=== PATIENT | male | born 1965 | race Caucasian/White ===

== ENCOUNTER 2019-06-25 08:10 | Inpatient (IN) ==
[2019-06-25] MEDS ORDERED: ZOFRAN ODT PO ONE ×2 (09:29→09:36)
[2019-06-25] MEDS ORDERED: ATIVAN PO ONE (09:32)
[2019-06-25] MEDS ORDERED: ZOFRAN ODT ONE (09:34)
[2019-06-25 10:17] LABS: BASO# 0.03 X1000 (0.0-0.2); BASO% 0.3 % (0.0-0.8); EOS# 0.01 X1000 (0.0-0.7); EOS% 0.1 % (0.0-10.0); HEMATOCRIT 44.1 % (42.0-52.0); HEMOGLOBIN 14.7 g/dL (14.0-18.0); IMM GRAN# 0.01 X1000 (0.0-0.04); IMM GRAN% 0.1 % (0.0-0.5); LYMPH# 1.54 X1000 (1.2-3.4); LYMPH% 16.5 % (20.5-51.1); MCH 29.9 PG (27-31); MCHC 33.3 g/dL (33-37); MCV 89.6 FL (81-99); MONO# 0.44 X1000 (0.11-0.59); MONO% 4.7 % (1.7-9.3); MPV 9.5 FL (7.4-10.4); NEUT# 7.29 X1000 (1.4-6.5); NEUT% 78.3 % (42.2-75.2); PLT 284 X1000 (130-400); RBC 4.92 XMIL (4.7-6.1); RDW 20.1 % (11.5-14.5); WBC 9.32 X1000 (4.8-10.8)
[2019-06-25 10:37] LABS: AGAP 12; ALBUMIN 4.2 g/dL (3.5-5.0); ALKALINE PHOSPHATASE 133 U/L (32-122); BUN 10 mg/dL (8-22); CALCIUM 9.4 mg/dL (8.8-10.2); CHLORIDE 101 mmol/L (98-107); COSMO 285; CREATININE 0.5 mg/dL (0.7-1.2); ESTIMATED GFR > 60; GLUCOSE 110 mg/dL (70-104); GOT 79 U/L (10-34); GPT 45 U/L (10-44); POTASSIUM 3.7 mmol/L (3.5-5.1); SODIUM 143 mmol/L (136-145); TCO2 30 mmol/L (25-35); TOTAL PROTEIN 6.8 g/dL (6.3-8.3)
--- NOTE | 2019-06-25 10:40 | Diag Imaging Result Doc PS360 ---
EXAM: XRAY PELVIS W/HIP 2-3VW RT - 06/25/2019 HISTORY: R hip pain TECHNIQUE: Right hip and pelvis four views COMPARISON: None. FINDINGS: There is a right total hip prosthesis. The prosthesis appears to be in satisfactory alignment. There is no fracture or prosthesis dislocation identified. There are no erosive or destructive changes identified. IMPRESSION: Right total hip prosthesis. No visible acute abnormality. Electronically signed by Hardeep Comer 06/25/2019 10:38 AM
[2019-06-25 10:53] LABS: BILIRUBIN URINE NEGATIVE (NEGATIVE); BLOOD URINE NEGATIVE (NEGATIVE); CLARITY VERY CLOUDY (CLEAR); COLOR YELLOW; GLUCOSE URINE NEGATIVE (NEGATIVE); KETONE URINE 2+(Moderate) mg/dL (NEGATIVE); LEUKOCYTES URINE TRACE (NEGATIVE); NITRITE URINE NEGATIVE (NEGATIVE); PH URINE 6.5; PROTEIN URINE 1+(30 mg/dL) mg/dL (NEGATIVE); UROBILINOGEN URINE 12 mg/dL
[2019-06-25 10:55] LABS: FREE T4 0.91 ng/dL (0.93-1.70); TSH 1.07 uIUmL (0.27-4.20)
[2019-06-25 10:56] LABS: URINE BACTERIA 1+ /HFP; URINE CAST NONE SEEN /LPF; URINE CRYSTAL NONE SEEN /HPF; URINE EPITHELIAL CELLS <10 /HPF (<10); URINE RBC <10 /HPF (<10); URINE SOURCE CLEAN CATCH; URINE WBC <10 /HPF (<10); URINE YEAST PRESENT /HPF
[2019-06-25 11:56] LABS: UR AMPHETAMINES QUAL NONE DETECTED (NONE DETECT); UR BARBITUATES QUAL NONE DETECTED (NONE DETECT); UR BENZODIAZEPIN QUAL NONE DETECTED (NONE DETECT); UR CANNABINOIDS QUAL NONE DETECTED (NONE DETECT); UR COCAINE QUAL NONE DETECTED (NONE DETECT); UR METHADONE QUAL NONE DETECTED (NONE DETECT); UR METHAMPHETAMINE QUAL NONE DETECTED (NONE DETECT); UR OPIATES QUAL PRESUMPTIVE POSITIVE (NONE DETECT); UR OXYCODONE QUAL NONE DETECTED (NONE DETECT); UR PCP QUAL NONE DETECTED (NONE DETECT); UR PROPOXYPHENE QUAL NONE DETECTED (NONE DETECT); UR TCA QUAL NONE DETECTED (NONE DETECT)
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
[2019-06-25] MEDS ORDERED: PHENOBARBITAL IV PRN (15:31)
[2019-06-25] MEDS ORDERED: SENOKOT PO PRN (15:31)
[2019-06-25] MEDS ORDERED: IMODIUM PO PRN (15:31)
[2019-06-25] MEDS ORDERED: DULCOLAX PR PRN (15:31)
[2019-06-25] MEDS ORDERED: BENTYL PO PRN (15:31)
[2019-06-25] MEDS ORDERED: ZOFRAN ODT PO PRN (15:31)
[2019-06-25] MEDS ORDERED: SALINE LOCK IV FLUID XX ONE (15:31)
[2019-06-25] MEDS ORDERED: MAALOX PLUS LIQUID PO PRN (15:31)
[2019-06-25] MEDS ORDERED: D5W 1,000 ML IV PRN (15:31)
[2019-06-25] MEDS ORDERED: ZOFRAN IV PRN (15:31)
[2019-06-25] MEDS ORDERED: M.V.I.-12 10 ML, FOLIC ACID 1 MG, MAGNESIUM SULFATE 1 GM, THIAMINE 100 MG in NS 1,000 ML IV ONE (17:00)
[2019-06-25] MEDS: LIBRIUM PO SCH ×2 (17:50→21:23)
[2019-06-25] MEDS: NICODERM PATCH TD PRN (21:23)
[2019-06-25] MEDS: SEROQUEL PO PRN (21:23)
[2019-06-25] MEDS: DESYREL PO PRN (23:28)
[2019-06-26] MEDS: LIBRIUM PO SCH ×4 (03:16→22:56)
[2019-06-26] MEDS: PROTONIX PO SCH (06:10)
[2019-06-26] MEDS: VITAMIN B-1 PO SCH (09:57)
[2019-06-26] MEDS: FOLIC ACID PO SCH (09:57)
[2019-06-26] MEDS: THERA M PLUS PO SCH (09:57)
[2019-06-26] MEDS: NEURONTIN PO SCH ×3 (10:22→16:33)
[2019-06-26] MEDS: MOTRIN PO PRN ×2 (12:49→19:56)
[2019-06-26] MEDS: ROBAXIN PO PRN ×2 (12:49→19:55)
[2019-06-26] MEDS: ATARAX PO PRN (12:49)
[2019-06-26] MEDS: TYLENOL PO PRN (15:39)
[2019-06-26] MEDS: NICODERM PATCH TD PRN (15:39)
[2019-06-26] MEDS: TORADOL IV PRN (17:42)
[2019-06-26] MEDS ORDERED: ATIVAN IV ONE ×2 (20:33→22:30)
[2019-06-27] MEDS: NICODERM PATCH TD PRN (03:24)
[2019-06-27] MEDS: LIBRIUM PO SCH ×4 (03:31→21:55)
[2019-06-27] MEDS: ATARAX PO PRN ×3 (03:31→21:55)
[2019-06-27] MEDS: TORADOL IV PRN ×2 (03:31→13:16)
[2019-06-27] MEDS: FOLIC ACID PO SCH (09:18)
[2019-06-27] MEDS: THERA M PLUS PO SCH (09:19)
[2019-06-27] MEDS: MOTRIN PO PRN (09:19)
[2019-06-27] MEDS: PROTONIX PO SCH (09:19)
[2019-06-27] MEDS: VITAMIN B-1 PO SCH (09:19)
[2019-06-27] MEDS: NEURONTIN PO SCH ×3 (09:19→16:22)
--- NOTE | 2019-06-27 09:26 | PROGRESS NOTE ---
DATE: 06/27/2019 SUBJECTIVE: Patient has been confused, disoriented at times. He has been attempting to get up out of bed. He is too weak to do so. He is easily agitated. PHYSICAL EXAMINATION: Vital Signs: Reviewed: Temp 98 degrees, pulse 107, respiratory rate 18, BP 119/83 to 149/85. General: Patient is awake, alert. He is in no respiratory distress but he is in obvious distress due to alcohol withdrawal. He is confused, disoriented, agitated. Therefore, he is currently on one-to-one. HEENT: Normocephalic. Neck: Supple. Cardiovascular: Regular rate. Chest: Clear. Abdomen: Soft. Extremities: Moves all extremities. ASSESSMENT: 1. 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 2. Nausea. 3. Tremors. 4. Myalgias. 5. Generalized weakness. 6. Alcohol abuse withdrawal and stabilization. PLAN: We will continue patient in the hospital. Continue Librium. Continue counseling. We will place him on one-to-one and will follow. cc: Reggie Simpson MD
[2019-06-27] MEDS: SEROQUEL PO PRN (21:56)
[2019-06-27] MEDS: ROBAXIN PO PRN (21:56)
[2019-06-28] MEDS: ATIVAN IV PRN ×3 (02:18→21:51)
[2019-06-28] MEDS: LIBRIUM PO SCH ×3 (03:38→17:17)
[2019-06-28] MEDS: VITAMIN B-1 PO SCH (09:39)
[2019-06-28] MEDS: FOLIC ACID PO SCH (09:40)
[2019-06-28] MEDS: NEURONTIN PO SCH ×3 (09:40→17:16)
[2019-06-28] MEDS: PROTONIX PO SCH (09:40)
[2019-06-28] MEDS: THERA M PLUS PO SCH (09:40)
--- NOTE | 2019-06-28 09:49 | PROGRESS NOTE ---
DATE: 06/27/2019 SUBJECTIVE: Patient is still confused, disoriented. Does not answer questions nor follow commands. PHYSICAL EXAMINATION: Vital Signs: Reviewed. He is afebrile. Vital signs stable. Cardiovascular: Regular rate. Chest: Clear. Abdomen: Soft. Extremities: Moves all extremities. ASSESSMENT: 1. Nausea, vomiting, abdominal pain, improved. 2. Myalgias, improved. 3. Tremors, still present but improved. 4. Alcohol abuse withdrawal and stabilization. We will continue Librium. Continue to taper as possible. 5. Alcoholic hallucinosis, still problematic. cc: Reggie Simpson MD
--- NOTE | 2019-06-28 10:54 | PROGRESS NOTE ---
DATE: 06/28/2019 SUBJECTIVE: The patient this morning seems to be better. He is actually sitting up in the bed. He is eating breakfast. He does answer questions. However, last night he was quite agitated, confused, disoriented, was hallucinating and required chemical restraints to prevent him from hurting himself or the staff. PHYSICAL EXAMINATION: Vital Signs: Temperature 97.6, pulse 108 respiratory rate 18, blood pressure 139/97. General: Patient is awake. He is in no current respiratory distress. HEENT: Normocephalic. Neck: Supple. Cardiovascular: Tachycardia, no murmurs. Chest: Clear. No crackles, no wheezing. Abdomen: Soft, nondistended. Extremities: Moves all extremities. ASSESSMENT: 1. Nausea and vomiting, improved. 2. Abdominal pain, improved. 3. Tremors, improved. 4. Alcoholic hallucinosis, was somewhat problematic last night, but seems to be improved this morning. 5. Alcohol withdrawal. 6. Supraventricular tachycardia. PLAN: We are going to continue the patient in the hospital. We are going to decrease him from Librium 50 q.6 h. to 50 q.8 h. and we will follow. We will continue symptomatic medications and will continue 1 on 1 care to hopefully help reorient him prior to requiring chemical restraints. cc: Reggie Simpson MD
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
[2019-06-28] MEDS: TORADOL IV PRN ×2 (13:31→18:46)
[2019-06-28] MEDS: HALDOL IV PRN ×2 (18:46→23:05)
[2019-06-29] MEDS: LIBRIUM PO SCH ×3 (01:35→18:15)
[2019-06-29] MEDS: ROBAXIN PO PRN ×3 (02:08→20:03)
[2019-06-29] MEDS: SEROQUEL PO PRN ×2 (02:08→20:03)
[2019-06-29] MEDS: ATARAX PO PRN ×3 (02:08→20:03)
[2019-06-29] MEDS: PROTONIX PO SCH ×2 (05:51→08:39)
[2019-06-29] MEDS: ATIVAN IV PRN ×2 (09:31→20:03)
[2019-06-29] MEDS: TORADOL IV PRN ×2 (09:31→16:40)
[2019-06-29] MEDS: VITAMIN B-1 PO SCH (09:31)
[2019-06-29] MEDS: FOLIC ACID PO SCH (09:31)
[2019-06-29] MEDS: THERA M PLUS PO SCH (09:31)
[2019-06-29] MEDS: NEURONTIN PO SCH ×3 (09:31→17:40)
[2019-06-29] MEDS: TYLENOL PO PRN ×2 (11:42→18:50)
--- NOTE | 2019-06-29 18:12 | PROGRESS NOTE ---
DATE: 06/29/2019 SUBJECTIVE: Patient is somnolent, but does awaken. He was much more calm last night. Denies any fevers, chills. The staff notes that he seems to be improving and he is having more times of being alert. OBJECTIVE: Temperature 97, pulse 89, respiratory rate 18, BP 128/82.General: Patient is in no current respiratory distress. HEENT: Normocephalic. Neck: Supple. Cardiovascular: Regular rate. Chest: Clear, nonlabored. No crackles. Abdomen: Soft, nondistended. Extremities: Moves all extremities. Neurologic: No changes. ASSESSMENT: 1. Nausea, vomiting. 2. Abdominal pain. 3. Myalgias. 4. Tremors. 5. Paroxysmal sweating. 6. Alcohol withdrawal. PLAN: We will continue patient in the hospital. We will continue to wean Librium as tolerated. Further orders as needed. Expect he will be in the hospital 2 or 3 more days cc: Reggie Simpson MD MTDD
[2019-06-29] MEDS: MOTRIN PO PRN (20:03)
[2019-06-29] MEDS: HALDOL IV PRN (20:04)
[2019-06-30] MEDS: ATIVAN IV PRN ×3 (04:45→20:40)
[2019-06-30] MEDS: HALDOL IV PRN (04:45)
[2019-06-30] MEDS: LIBRIUM PO SCH ×3 (04:45→20:40)
[2019-06-30 06:25] LABS: HEMATOCRIT 36.2 % (42.0-52.0); HEMOGLOBIN 11.3 g/dL (14.0-18.0); MCH 30.1 PG (27-31); MCHC 31.2 g/dL (33-37); MCV 96.3 FL (81-99); MPV 9.4 FL (7.4-10.4); RBC 3.76 XMIL (4.7-6.1); RDW 21.2 % (11.5-14.5); WBC 6.05 X1000 (4.8-10.8)
[2019-06-30] MEDS: PROTONIX PO SCH ×2 (06:50→09:12)
[2019-06-30 06:53] LABS: AGAP 9; ALBUMIN 2.7 g/dL (3.5-5.0); ALKALINE PHOSPHATASE 81 U/L (32-122); BUN 14 mg/dL (8-22); CALCIUM 8.7 mg/dL (8.8-10.2); CHLORIDE 109 mmol/L (98-107); COSMO 285; CREATININE 0.7 mg/dL (0.7-1.2); ESTIMATED GFR > 60; GLUCOSE 90 mg/dL (70-104); GOT 44 U/L (10-34); GPT 37 U/L (10-44); MAGNESIUM 1.3 mg/dL (1.5-2.7); POTASSIUM 3.7 mmol/L (3.5-5.1); SODIUM 143 mmol/L (136-145); TCO2 25 mmol/L (25-35); TOTAL PROTEIN 5.1 g/dL (6.3-8.3)
[2019-06-30] MEDS: TORADOL IV PRN ×3 (09:11→20:40)
[2019-06-30] MEDS: VITAMIN B-1 PO SCH (09:12)
[2019-06-30] MEDS: THERA M PLUS PO SCH (09:12)
[2019-06-30] MEDS: ROBAXIN PO PRN ×3 (09:12→22:15)
[2019-06-30] MEDS: FOLIC ACID PO SCH (09:12)
[2019-06-30] MEDS: NEURONTIN PO SCH ×3 (09:12→16:52)
[2019-06-30] MEDS: NICODERM PATCH TD PRN (10:42)
--- NOTE | 2019-06-30 12:24 | PROGRESS NOTE ---
DATE: 06/30/2019 SUBJECTIVE: Patient has multiple complaints. He is still easily confused, does not follow thought patterns very well. States he cannot move his left leg, but in fact, he is continuing to say that his legs are weak. He was able to get up with assistance to the restroom and was noted by staff clearly moving his left leg. The patient is still somewhat confused. He is adamant that alcohol did not cause his current issue, as he has drunk his whole life and has never had these issues. PHYSICAL EXAMINATION: Vital Signs: Reviewed. Temp 97 degrees, pulse 97, respiratory rate 18, BP 146/95. General: Patient is awake, alert. He is in no current respiratory distress. HEENT: Normocephalic. Neck: Supple. Cardiovascular: Regular rate. Chest: Clear. Abdomen: Soft. Extremities: He is noted to move all 4 extremities although does have generalized weakness. Neurologic: No focal changes. ASSESSMENT: 1. Nausea, vomiting, abdominal pain. 2. Generalized weakness. 3. Adult failure to thrive. 4. Alcohol abuse withdrawal and stabilization. 5. Chronic anxiety. 6. Frequent agitation. PLAN: Overall, patient has improved. He is no longer in alcohol withdrawal. We are going to continue to wean down his Librium. Currently, he is on 3 daily and will decrease it to twice daily today. We will follow. We will get physical therapy involved and hopefully transition home or to rehab soon. cc: Reggie Simpson MD
[2019-06-30] MEDS: ATARAX PO PRN ×2 (13:04→20:39)
[2019-06-30] MEDS: TYLENOL PO PRN ×2 (13:04→18:32)
[2019-06-30] MEDS: SEROQUEL PO PRN (20:39)
[2019-06-30] MEDS: MOTRIN PO PRN (22:15)
[2019-06-30] MEDS: DESYREL PO PRN (22:16)
[2019-07-01] MEDS: ATIVAN IV PRN ×2 (03:26→20:11)
[2019-07-01] MEDS: TYLENOL PO PRN ×2 (03:26→22:26)
[2019-07-01] MEDS: ATARAX PO PRN ×3 (03:26→22:25)
[2019-07-01] MEDS: TORADOL IV PRN ×4 (03:26→22:26)
[2019-07-01] MEDS: PROTONIX PO SCH (06:13)
[2019-07-01] MEDS: MOTRIN PO PRN ×2 (06:13→20:11)
[2019-07-01] MEDS: ROBAXIN PO PRN ×3 (06:13→20:11)
[2019-07-01] MEDS: NICODERM PATCH TD PRN (09:23)
[2019-07-01] MEDS: LIBRIUM PO SCH ×2 (09:23→20:11)
[2019-07-01] MEDS: NEURONTIN PO SCH ×3 (09:24→17:45)
[2019-07-01] MEDS: THERA M PLUS PO SCH (09:24)
[2019-07-01] MEDS: FOLIC ACID PO SCH (09:24)
[2019-07-01] MEDS: VITAMIN B-1 PO SCH (09:24)
--- NOTE | 2019-07-01 10:45 | Diag Imaging Result Doc PS360 ---
EXAM: CHEST-1 VIEW HISTORY: SNF placement TECHNIQUE: Single view COMPARISON: 03/11/2017 FINDINGS: The lungs are well expanded except for atelectasis in the left lung base. The heart is not enlarged. The vessels are not distended. There are no infiltrates. Tiny left pleural effusion. IMPRESSION: Tiny left effusion with basilar atelectasis Electronically signed by Maykel Pan 07/01/2019 10:43 AM
--- NOTE | 2019-07-01 18:25 | PROGRESS NOTE ---
DATE: 07/01/2019 SUBJECTIVE: Patient with no new complaints. States he is tired, fatigued. Notes that he is still having difficulty getting up. OBJECTIVE: Vital Signs: Reviewed. General: He is awake, alert. He is in no respiratory distress. HEENT: Normocephalic. Neck: Supple. Cardiovascular: Regular rate. No murmurs. Chest: Clear, nonlabored. Abdomen: Soft, nondistended. Extremities: He is noted to move all extremities. In fact, he is noted to stand beside bed with some mild assistance. Neurologic: No focal changes. ASSESSMENT: 1. Nausea and vomiting. 2. Abdominal pain. 3. Tremors. 4. Paroxysmal sweating. 5. Generalized weakness. 6. Alcohol abuse, withdrawal and stabilization. PLAN: Overall, patient has improved. His withdrawal symptoms have resolved. We are going to continue to wean his Librium. Continue physical therapy and will follow. Expect that he will need rehab prior to being able to discharge home. cc: Reggie Simpson MD
[2019-07-01] MEDS: SEROQUEL PO PRN (20:11)
[2019-07-01] MEDS: HALDOL IV PRN (20:12)
[2019-07-01] MEDS: DESYREL PO PRN (22:26)
[2019-07-02] MEDS: PROTONIX PO SCH (07:19)
[2019-07-02 07:52] VITALS: BP 155/80
[2019-07-02] MEDS: TORADOL IV PRN (08:04)
[2019-07-02] MEDS: VITAMIN B-1 PO SCH (08:04)
[2019-07-02] MEDS: THERA M PLUS PO SCH (08:04)
[2019-07-02] MEDS: NEURONTIN PO SCH (08:05)
[2019-07-02] MEDS: FOLIC ACID PO SCH (08:05)
[2019-07-02] MEDS: LIBRIUM PO SCH (08:05)
[2019-07-02] MEDS: NICODERM PATCH TD PRN (11:04)
--- NOTE | 2019-07-02 13:45 | DISCHARGE SUMMARY ---
ADMISSION DATE: 06/25/2019 DISCHARGE DATE: 07/02/2019 DISCHARGE DIAGNOSES: 1. Nausea and vomiting. 2. Abdominal pain. 3. Myalgias. 4. Paroxysmal sweating. 5. Tremors. 6. Alcohol abuse withdrawal and stabilization. 7. Metabolic encephalopathy secondary to alcohol withdrawal, resolved. 8. Generalized weakness, continues to be problematic. CONSULTATIONS: None. PROCEDURES: None. BRIEF HOSPITAL COURSE: The patient is a 54-year-old male, who presented to [facility] secondary to nausea, vomiting, abdominal pain, and tremors. He had noted that he has been drinking heavily for the past several weeks. He was unable to stop secondary to his withdrawal symptoms. His hospital course was prolonged secondary to the significance of his withdrawal symptoms as well as his metabolic encephalopathy that occurred during withdrawal. Thankfully, on discharge, he is now awake, alert, and oriented. He has been off Librium for the past 48 hours. He is in no current distress. He will therefore be transferred to rehab. DISPOSITION: The patient will be transferred to rehab. No further complications are noted. He requires no new medications other than symptomatic treatment. We will continue to follow. He will continue physical therapy. Further orders as needed. TIME SPENT: Greater than 30 minutes was spent in total care. cc: Reggie Simpson MD [facility]
[2019-07-02] MEDS ORDERED: NEURONTIN PO SCH (15:00)
== END 2019-07-02 15:24 | DRG 897 ==
LOC: P.ED 08:10 → P.DIRADM 14:44 → P.MEDSURG 14:59
PROVIDERS: ADMIT Family Medicine; ATTEND Family Medicine